=== PATIENT | female | born 1990 | race Caucasian/White ===

== ENCOUNTER 2020-06-16 15:07 | Inpatient (IN) ==
[2020-06-16 14:08] LABS: Basophils % 0.2 %; Eosinophils % 0.2 %; Hematocrit 35.5 % (35.3-44.9); Hemoglobin 11.7 g/dL (11.5-15.4); Immature Granulocytes % 1.2 % (0-4); Lymphocytes # 1.6 K/mcL (0.6-4.6); Lymphocytes % 12.6 %; Mean Corpuscular Hemoglobin 29.5 pg (28.0-33.3); Mean Corpuscular Volume 89.4 fL (83.0-100.0); Mean Platelet Volume 11.5 fL (9.4-12.4); Monocytes % 7.6 %; Neutrophils # 10.1 K/mcL (1.6-8.9); Platelet Count 164 K/mcL (140-400); Red Blood Count 3.97 M/mcL (3.82-4.97); Red Cell Distribution Width 13.4 % (11.5-14.5); Segmented Neutrophils % 78.2 %; White Blood Count 12.9 K/mcL (4.3-11.1)
[2020-06-16 14:17] LABS: Protein/Creatinine Ratio,Urine 0.17 mg/mg (0.00-0.20)
[2020-06-16 14:28] LABS: Alanine Aminotransferase 7 Units/L (7-52); Aspartate Amino Transferase 16 Units/L (13-39); BUN/Creatinine Ratio 21 (6-26); Blood Urea Nitrogen 10 mg/dL (6-20); Lactate Dehydrogenase 161 Units/L (140-271); Uric Acid 5.1 mg/dL (2.3-7.6); eGFR For African Americans > 60 (> 60); eGFR For Non-African Americans > 60 (> 60)
[~2020-06-16 15:07] MED LIST: *HR* FentaNYL (PF) 100 MCG/2 ML VIAL IVP PRN; Famotidine 20 MG/2 ML VIAL IVP PRN; Metoclopramide 10 MG/2 ML VIAL IVP PRN; Naloxone 0.4 MG/ML INJ IVP PRN; Ondansetron 4 MG/2 ML VIAL IVP PRN
[2020-06-16] MEDS ORDERED: EPHEDrine 50 MG/ML VIAL IVP PRN (15:15)
[2020-06-16] MEDS ORDERED: Epidural Premix (fent/bupiv) 110 ML EP SCH (15:15)
[2020-06-16] MEDS ORDERED: miSOPROStoL 25 MCG TABLET VG PRN (15:18)
[2020-06-16 15:31] LABS: Amphetamine Screen,Urine Negative ng/mL (Cutoff=1000); Barbiturate Screen,Urine Negative ng/mL (Cutoff=200); Benzodiazepines Screen,Urine Negative ng/mL (Cutoff=200); Cannabinoid Screen,Urine Negative ng/mL (Cutoff = 50); Cocaine Screen,Urine Negative ng/mL (Cutoff= 300); Opiate Screen,Urine Negative ng/mL (Cutoff=300); Phencyclidine Screen,Urine Negative ng/mL (Cutoff=25)
[2020-06-16] MEDS ORDERED: Oxytocin 20 units/ LR 1000 mL 20 UNIT/1,000 ML BAG IVC SCH (23:00)
[2020-06-17] MEDS: Ringers Solution, Lactated 1,000 ML IVC SCH ×2 (04:09→22:46)
[2020-06-17] MEDS ORDERED: EPHEDrine 50 MG/ML VIAL IVP PRN (16:51)
[2020-06-17] MEDS ORDERED: *HR* FentaNYL (PF) 100 MCG/2 ML VIAL EP ONE (16:51)
[2020-06-17] MEDS ORDERED: Ropivacaine/PF 0.2% 20 ML VIAL EP ONE (16:51)
[2020-06-17] MEDS: Acetaminophen 325 MG TABLET PO PRN (22:16)
[2020-06-17] MEDS ORDERED: MetroNIDAZOLE 500 MG/100 ML 500 MG/100 ML BAG IVPB SCH (23:00)
[2020-06-17] MEDS ORDERED: Ampicillin 2 GM in 0.9 % Sodium Chloride Mini Bag 100 ML IVPB SCH (23:17)
[2020-06-17] MEDS ORDERED: 0.9 % Sodium Chloride 1,000 ML IVC SCH (23:30)
[2020-06-17] MEDS ORDERED: Oxytocin 20 UNIT in 0.9 % Sodium Chloride 1,000 ML IM SCH (23:30)
[2020-06-18] MEDS ORDERED: Gentamicin 110 MG in 0.9 % Sodium Chloride 100 ML IVPB SCH
[2020-06-18] MEDS: Acetaminophen 325 MG TABLET PO PRN (04:33)
[2020-06-18] MEDS ORDERED: Famotidine 20 MG/2 ML VIAL IVP ONE (05:35)
[2020-06-18] MEDS ORDERED: Oxytocin 20 units/ LR 1000 mL 20 UNIT/1,000 ML BAG IVC ONE (05:35)
[2020-06-18] MEDS ORDERED: CeFAZolin 2,000 MG/50 ML BAG IVPB ONE (05:35)
[2020-06-18] MEDS ORDERED: Metoclopramide 10 MG/2 ML VIAL IVP ONE (05:35)
[2020-06-18] MEDS ORDERED: Lidocaine/EPI 1:200k 2% PF 20 ML VIAL ONE (05:46)
[2020-06-18] MEDS ORDERED: *HR* Oxytocin 10 UNIT/ML VIAL IM ONE ×2 (05:47→06:43)
[2020-06-18] MEDS ORDERED: Azithromycin 500 MG in 0.9 % Sodium Chloride 250 ML IVPB SCH (06:00)
[2020-06-18] MEDS ORDERED: Acetaminophen IV 1,000 MG/100 ML INFUS..BTL ONE (06:10)
[2020-06-18] MEDS ORDERED: Ondansetron 4 MG/2 ML VIAL ONE ×2 (06:11→06:54)
[2020-06-18] MEDS ORDERED: *HR* Morphine Sulfate/PF 10 MG/10 ML AMPUL ONE (06:23)
[2020-06-18] MEDS ORDERED: Ringers Solution, Lactated 1,000 ML ONE (06:43)
[2020-06-18] MEDS ORDERED: *HR* HYDROmorphone PF 0.5 MG/0.5 ML SYRINGE IVP PRN (06:48)
[2020-06-18] MEDS ORDERED: Ondansetron 4 MG/2 ML VIAL IVP ONE (06:48)
[2020-06-18] MEDS ORDERED: *HR* OxyCODONE Immed Rel 5 MG TABLET PO PRN (06:48)
[2020-06-18] MEDS ORDERED: *HR* Promethazine 25 MG/ML VIAL ONE (07:37)
[2020-06-18] MEDS ORDERED: *HR* Magnesium Sulfate 1 GM/2 ML VIAL ONE (07:37)
[2020-06-18] MEDS ORDERED: Oxytocin 20 units/ LR 1000 mL 20 UNIT/1,000 ML BAG IVC SCH ×2 (08:47)
[2020-06-18] MEDS ORDERED: Ringers Solution, Lactated 1,000 ML IVC SCH (08:47)
[2020-06-18] MEDS ORDERED: Sennosides 8.6 MG TABLET PO PRN (08:47)
[2020-06-18] MEDS ORDERED: Rho Immune Globulin 1,500 UNIT SYRINGE IM ONE (08:47)
[2020-06-18] MEDS ORDERED: Metoclopramide 10 MG/2 ML VIAL IVP PRN (08:47)
[2020-06-18] MEDS ORDERED: *HR* OxyCODONE/APAP 5/325 TABLET PO PRN (08:47)
[2020-06-18] MEDS ORDERED: Ondansetron 4 MG/2 ML VIAL IVP PRN (08:47)
[2020-06-18] MEDS ORDERED: Simethicone 80 MG TAB.CHEW PO PRN (08:47)
[2020-06-18] MEDS: Ibuprofen 600 MG TABLET PO PRN ×2 (18:29→23:55)
[2020-06-19 05:38] LABS: Hematocrit 22.7 % (35.3-44.9); Mean Corpuscular HGB Conc 33.5 g/dL (31.6-35.5); Mean Corpuscular Hemoglobin 30.4 pg (28.0-33.3); Mean Corpuscular Volume 90.8 fL (83.0-100.0); Mean Platelet Volume 11.4 fL (9.4-12.4); Platelet Count 115 K/mcL (140-400); Red Cell Distribution Width 13.8 % (11.5-14.5); White Blood Count 15.5 K/mcL (4.3-11.1)
[2020-06-19 05:42] LABS: Hemoglobin 7.6 g/dL (11.5-15.4)
[2020-06-19 06:13] LABS: Lymphocytes # 1.6 K/mcL (0.6-4.6); Monocytes # 0.6 K/mcL (0.0-1.3); Neutrophils # 13.3 K/mcL (1.6-8.9)
[2020-06-19 06:14] LABS: Platelet Estimate Slight Decrease (Normal)
[2020-06-19] MEDS: Ibuprofen 600 MG TABLET PO PRN ×2 (08:25→18:34)
[2020-06-19] MEDS: Prenatal Vit/FA 1 EACH TABLET PO SCH (08:26)
[2020-06-20] MEDS: Ibuprofen 600 MG TABLET PO PRN ×2 (04:08→11:00)
[2020-06-20] MEDS: Prenatal Vit/FA 1 EACH TABLET PO SCH (08:16)
[2020-06-20 08:42] VITALS: BP 111/74
== END 2020-06-20 11:30 | disposition home or self-care (01) | DRG 540 ==
LOC: 1NENULAB → 1NENUOBS 06-18 09:36
PROVIDERS: ADMIT Advanced Practice Midwife; ATTEND Advanced Practice Midwife